=== PATIENT | male | born 1960 | race Caucasian/White ===

== ENCOUNTER → 2019-11-25 07:09 | Outpatient (CLI) | payer OTHER, SELFPAY ==
--- NOTE | ~2019-11-25 | MR_ITS ---
EXAMINATION: MR lumbar spine wo [facility] EXAM DATE: 11/25/2019 07:53 INDICATION: Degenerative disc disease. Back pain. TECHNIQUE: Multi-sequential, multiplanar MR images of the lumbar spine were obtained without contrast . Sagittal T1, T2, T2 fat saturation images. Axial T2 weighted images. There is no prior study for comparison. FINDINGS: There is mild to moderate upper lumbar dextroscoliosis. Paraspinal soft tissue is unremarka ble. Mild diffuse loss of vertebral body heights. Moderate to severe disc disease L1-2, L2-3 and L4-5 , mild to moderate at L3-4 and L5-S1. Mild to moderate lower thoracic disc disease. There is 3 mm ret rolisthesis L1 on L2, L2 on L3 and L4 on L5. The conus medullaris terminates at the L1/2 level and simon s normal signal intensity and morphology. Multilevel endplate degenerative signal change. Level by level evaluation: T12-L1: There is a mild diffuse disc bulge. Facet arthropathy: Mild. Neural foraminal stenosis: No stenosis. Central canal stenosis: No stenosis. L1-L2: There is a large diffuse disc bulge. Facet arthropathy: Moderate. Neural foraminal stenosis: Mild to moderate bilateral. Central canal stenosis: Mild to moderate. L2-L3: There is a large diffuse disc bulge. Facet arthropathy: Moderate. Neural foraminal stenosis: Moderate to severe left, mild right. Central canal stenosis: Mild to moderate. L3-L4: There is a moderate to large diffuse disc bulge. Facet arthropathy: Moderate. Neural foraminal stenosis: Mild to moderate bilateral. Central canal stenosis: Mild to moderate. L4-L5: There is a large diffuse disc bulge. Facet arthropathy: Moderate to severe right, moderate left. Neural foraminal stenosis: Moderate to severe right, moderate left. Central canal stenosis: Mild to moderate. L5-S1: There is a mild diffuse disc bulge. Facet arthropathy: Moderate right, mild left. Neural foraminal stenosis: Moderate right, mild to moderate left. Central canal stenosis: Mild. IMPRESSION: 1. Advanced multilevel disc disease. 2. Left L2-3 and right L4-5 neural foramen are most narrowed on exam. Reviewed, dictated and finalized at location A.
== END ==
PROVIDERS: PCP Family Medicine; Visit Provider Family Medicine
DX: M48.50XA Collapsed vertebra, not elsewhere classified, site unspecified, initial encounter for fracture (principal); M51.36 Other intervertebral disc degeneration, lumbar region; R93.7 Abnormal findings on diagnostic imaging of other parts of musculoskeletal system
CPT/HCPCS: 72148

== ENCOUNTER 2022-06-15 00:15 | Day surgery (SDC) | payer OTHER, SELFPAY ==
[2022-05-29 11:52] VITALS: BMI 24.5
[2022-06-15 06:18] VITALS: BP 146/92; PULSE 81; RESP 20; TEMP 36.3; O2SAT 97; BMI 24.3
[2022-06-15] MEDS: LACTATED RINGERS 1,000 ML 150 ML IV CONT (06:39)
--- NOTE | 2022-06-15 06:52 | P.HP_ITS ---
History of Present Illness History of Present Illness Consent: Risks, benefits, and alternatives have been discussed and questions answered. Patient agrees to proceed with procedure. Chief complaint: abnormal CT scan, Colitis Narrative: Baldomero Hudson is a 61 year old male who was recently evaluated for left- sided abdominal pain and diarrhea. CT scan that was done revealed thickening of the colon in the descending colon and sigmoid colon area. Also he had an elevated white blood count. . I reviewed the records from the emergency room visit. It suggest to me that he had something like diverticulitis. Stool cultures had been done that were all negative. He did see some blood his stools at that time. Review of Systems Review of Systems: All systems reviewed & are unremarkable except as noted in HPI and below PMFSH Social History Social History Smoking status: Never smoker Alcohol intake: former Alcohol use details: prior to knee surgery would drink on occasion Substance use: current Substance use type: other Other substance usage details: gummies at bedtime sometimes for insomnia Living arrangements: with family Spiritual care concerns: No Meds Home Medications and Allergies Home Medications Medication Instructions Recorded Confirmed Type amlodipine 10 mg tablet 10 mg PO DAILY 05/29/22 05/29/22 History aspirin 81 mg capsule 81 mg PO DAILY 05/29/22 05/29/22 History lorazepam 0.5 mg tablet 0.5 mg PO PRN PRN Anxiety 05/29/22 05/29/22 History losartan 100 mg tablet 100 mg PO DAILY 05/29/22 05/29/22 History omeprazole 20 mg capsule,delayed 20 mg PO DAILY 05/29/22 05/29/22 History release Allergies Allergy/AdvReac Type Severity Reaction Status Date / Time Penicillins AdvReac Headache Verified 05/29/22 12:06 Vital Signs Vital Signs - 24 hr 06/15/22 06:18 Temperature 36.3 C L Pulse Rate 81 Respiratory Rate 20 Blood Pressure 146/92 H Pulse Oximetry 97 Oxygen Delivery Room Air Exam Const: General: alert Orientation/consciousness: patient oriented x3 Resp: Auscultation: clear to auscultation bilaterally Cardio: Rhythm: regular rhythm GI: GI Palp: Yes Soft to palpation and No Tenderness to palpation present (GI) Neuro: General: patient oriented x3 Assessment and Plan Assessment and plan (1) Abnormal CT scan, gastrointestinal tract: Code(s): R93.3 - Abnormal findings on diagnostic imaging of other parts of digestive tract Status: Acute Assessment and Plan: Colonoscopy with possible biopsy or polypectomy or cautery or injection of substances.
--- NOTE | 2022-06-15 07:18 | WPDANESEPPF ---
Anes - Initial Pre Proc Eval Procedure: Operation Date: 06/15/22 07:30 Proposed Procedures p Colonoscopy - Conor Munson MD Date/Time: 06/15/22 07:18 Surgeon: Conor Munson MD Pre Op Diagnosis: abnormal CT scan, Colitis Patient Data Age: 61 Gender: M Height: 1.73 m Weight: 72.5 kg Last Vital Signs Temp 97.3 F L 06/15/22 06:18 Pulse 81 06/15/22 06:18 Resp 20 06/15/22 06:18 BP 146/92 H 06/15/22 06:18 Pulse Ox 97 06/15/22 06:18 O2 Del Method Room Air 06/15/22 06:18 Allergies Allergy/AdvReac Type Severity Reaction Status Date / Time Penicillins AdvReac Headache Verified 05/29/22 12:06 Home Medications Medication Instructions Recorded Confirmed Type amlodipine 10 mg tablet 10 mg PO DAILY 05/29/22 05/29/22 History aspirin 81 mg capsule 81 mg PO DAILY 05/29/22 05/29/22 History lorazepam 0.5 mg tablet 0.5 mg PO PRN PRN Anxiety 05/29/22 05/29/22 History losartan 100 mg tablet 100 mg PO DAILY 05/29/22 05/29/22 History omeprazole 20 mg capsule,delayed 20 mg PO DAILY 05/29/22 05/29/22 History release Patient hx anesthesia problems: none Family hx anesthesia problems: none Results Review: All pre-operative results and documents have been reviewed as part of the pre-operative evaluation. [facility] Social History Social History Smoking status: Never smoker Alcohol intake: former Alcohol use details: prior to knee surgery would drink on occasion Substance use: current Substance use type: other Other substance usage details: gummies at bedtime sometimes for insomnia Living arrangements: with family Spiritual care concerns: No Anes - Eval Final PreProcedure Day of Procedure 06/15/22 07:18 Patient weight: normal Heart: regular rate and rhythm Lungs: clear to auscultation Airway: Mallampati scale class II Neurological: alert and oriented Last oral intake: >/= 8 hours ASA classification: II Emergent: no Anesthetic plan: proceed Anesthesia type and monitoring: general GIVS and standard monitoring Results Review: All pre-operative results and documents have been reviewed as part of the pre-operative evaluation. Informed Consent: The patient's anesthetic plan and its attendant risks and benefits were discussed with the patient/family/POA. Questions were solicited and answers provided to the satisfaction of the patient/family/POA.
--- NOTE | 2022-06-15 07:40 | PM.HPGS ---
History of Present Illness History of Present Illness Consent: Risks, benefits, and alternatives have been discussed and questions answered. Patient agrees to proceed with procedure. Chief complaint: abnormal CT scan, Colitis Narrative: Baldomero Hudson is a 61 year old male [facility] Social History Social History Smoking status: Never smoker Alcohol intake: former Alcohol use details: prior to knee surgery would drink on occasion Substance use: current Substance use type: other Other substance usage details: gummies at bedtime sometimes for insomnia Living arrangements: with family Spiritual care concerns: No Meds Home Medications and Allergies Home Medications Medication Instructions Recorded Confirmed Type amlodipine 10 mg tablet 10 mg PO DAILY 05/29/22 05/29/22 History aspirin 81 mg capsule 81 mg PO DAILY 05/29/22 05/29/22 History lorazepam 0.5 mg tablet 0.5 mg PO PRN PRN Anxiety 05/29/22 05/29/22 History losartan 100 mg tablet 100 mg PO DAILY 05/29/22 05/29/22 History omeprazole 20 mg capsule,delayed 20 mg PO DAILY 05/29/22 05/29/22 History release Allergies Allergy/AdvReac Type Severity Reaction Status Date / Time Penicillins AdvReac Headache Verified 05/29/22 12:06 Vital Signs Vital Signs - 24 hr 06/15/22 06:18 Temperature 36.3 C L Pulse Rate 81 Respiratory Rate 20 Blood Pressure 146/92 H Pulse Oximetry 97 Oxygen Delivery Room Air Assessment and Plan Assessment and plan (1) Abnormal CT scan, gastrointestinal tract: Code(s): R93.3 - Abnormal findings on diagnostic imaging of other parts of digestive tract Status: Acute
[2022-06-15 07:45] VITALS: BP 77/45; PULSE 63; RESP 20; O2SAT 98
[2022-06-15 07:55] VITALS: BP 82/51; PULSE 60; RESP 20; O2SAT 99
[2022-06-15 08:02] VITALS: BP 115/86; PULSE 62; RESP 20; O2SAT 100
== END 2022-06-15 08:17 | disposition home or self-care (01) ==
PROVIDERS: PCP Family Medicine; Visit Provider Internal Medicine Gastroenterology
PROC: 0DJD8ZZ Inspection of Lower Intestinal Tract, Via Natural or Artificial Opening Endoscopic (ICD-10-PCS; CPT 45378; principal; 2022-06-15 07:30)
DX: K64.8 Other hemorrhoids (principal); K57.30 Diverticulosis of large intestine without perforation or abscess without bleeding; Z79.82 Long term (current) use of aspirin
CPT/HCPCS: 45378; J2704; J3370; J7120

== ENCOUNTER 2023-07-31 07:26 | Emergency (ER) | payer OTHER, SELFPAY ==
--- NOTE | ~2023-07-31 | CT_ITS ---
EXAMINATION: CT abdomen pelvis wo con DATE: 07/31/2023 08:33 INDICATION: Left flank pain and hematuria. TECHNIQUE: Computed tomography (CT) of the abdomen and pelvis was performed without intravenous contr ast. The dose-length product was 221.01 mGy-cm. Automated exposure control and iterative reconstructi on technique were employed. COMPARISON: None. FINDINGS: Lung bases unremarkable. Heart size normal. No significant pleural or pericardial effusion. Colonic diverticulosis without evidence for diverticulitis. Fatty infiltration of the liver. Gallbla dder is present. The spleen, pancreas, adrenal glands are unremarkable. There are small nonobstructin g left renal stones measuring 3 mm or less. No ureteral stones or hydronephrosis. No free air or free fluid. Severe lumbar spondylosis with grade 1 spondylolisthesis at L5-S1. No significant vascular ab normality. No lymphadenopathy. IMPRESSION: 1. Nonobstructing left nephrolithiasis. Reviewed, dictated and finalized at location B. ENT PRESSER
[2023-07-31 07:35] VITALS: BP 147/94; PULSE 84; RESP 16; TEMP 36.6; O2SAT 100
[2023-07-31 07:46] VITALS: BP 142/92; PULSE 80; RESP 16; O2SAT 100
[2023-07-31 08:01] VITALS: BP 139/96; PULSE 76; RESP 16; O2SAT 100
[2023-07-31 08:02] LABS: Basophils Percent Auto 0.3 % (0.2-1.2); Eosinophils Percent Auto 0.3 % (0-4.4); Hemoglobin 14.6 g/dL (14.0-18.0); Immature Granulocyte Absolute 0.02 K/mm3 (0.00-0.031); Immature Granulocyte Percent A 0.2 % (0-0.5); Lymphocytes Absolute Auto 0.77 K/mm3 (0.9-3.2); Lymphocytes Percent Auto 8.3 % (18.3-44.2); Mean Corpuscular HGB Conc 32.4 g/dl (32-36); Mean Corpuscular Hemoglobin 28.1 pg (26-34); Mean Corpuscular Volume 86.5 fl (80-100); Mean Platelet Volume 9.9 fl (7.4-10.4); Monocytes Absolute Auto 0.5 K/mm3 (0.1-0.6); Neutrophils Percent Auto 85.9 % (45.5-73.1); Platelet Count Result 300 k/mm3 (150-375); Red Cell Distribution Width 13.7 % (11.5-14.5); White Blood Count 9.3 K/mm3 (4.5-10.0)
--- NOTE | 2023-07-31 08:04 | ED.ABDPAIN ---
HPI - Abdominal Pain General Chief Complaint: Abdominal Pain Stated Complaint: Left side pain Time Seen by Provider: 07/31/23 07:36 History of Present Illness HPI narrative: 62-year-old male presenting to the ED for evaluation of hematuria and left flank pain. Patient was having some intermittent flank pain last night did have some hematuria this morning. Patient has no diagnosed history of kidney stone states that he has had intermittent issues with flank pain and hematuria last few months. Related Data Home Medications Medication Instructions Recorded Confirmed amlodipine 10 mg tablet 10 mg PO DAILY 05/29/22 05/29/22 aspirin 81 mg capsule 81 mg PO DAILY 05/29/22 05/29/22 lorazepam 0.5 mg tablet 0.5 mg PO PRN PRN Anxiety 05/29/22 05/29/22 losartan 100 mg tablet 100 mg PO DAILY 05/29/22 05/29/22 omeprazole 20 mg capsule,delayed 20 mg PO DAILY 05/29/22 05/29/22 release Allergies Allergy/AdvReac Type Severity Reaction Status Date / Time Penicillins AdvReac Headache Verified 05/29/22 12:06 Review of Systems Review of Systems: All systems reviewed & are unremarkable except as noted in HPI and below PMFSH Social History Social History Smoking status: Never smoker Alcohol intake: former Alcohol use details: prior to knee surgery would drink on occasion Substance use: current Substance use type: other Other substance usage details: gummies at bedtime sometimes for insomnia Living arrangements: with family Spiritual care concerns: No Exam Narrative: APPEARANCE: Well appearing, no pain, no distress, well-nourished. HEAD: normocephalic, atraumatic. EYES: PERRLA/EOMI, conjunctivae clear. NOSE: Normal no drainage EARS:TMS clear with good light reflex. THROAT: Pharynx clear, no exudate. NECK: Supple. No adenopathy, no masses. RESPIRATORY: Airway patent, respirations nonlabored. Clear to auscultation bilaterally, no rales, rhonchi, wheezing. CARDIOVASCULAR: Regular rate and rhythm without murmurs rubs or gallops. ABDOMINAL: Soft, nontender, nondistended, normal bowel sounds MUSCULOSKELETAL: Moves all extremities. Strength/ROM intact, No edema, No calf tenderness. NEURO: Alert. Cranial nerves II through XII intact. Grossly intact SKIN: Warm, dry. Normal Color Course Course Emergency Course: 62-year-old male presents emergency department for evaluation of left flank pain. Patient was afebrile with leukocytosis and a stable hemoglobin of 14.6. No significant abnormalities the patient's CMP. UA does show evidence of blood and having blood cells. CT scan did show evidence of nonobstructing kidney stones in the left kidney. Suspect this as the etiology for the patient's hematuria. Patient is being started antibiotics for possibility of underlying urinary tract infection. Patient was encouraged to have close follow-up with Urology. All questions and concerns were addressed and patient and family were comfortable with the plan for discharge and close follow-up. Vital Signs Vital signs: Vital Signs Temperature 97.9 F 07/31/23 07:35 Pulse Rate 84 07/31/23 07:35 Respiratory Rate 16 07/31/23 07:35 Blood Pressure 147/94 H 07/31/23 07:35 Pulse Oximetry 100 07/31/23 07:35 Temperature 97.9 F 07/31/23 07:35 Pulse Rate 70 07/31/23 10:40 Respiratory Rate 16 07/31/23 10:40 Blood Pressure 120/80 07/31/23 10:40 Pulse Oximetry 98 07/31/23 10:40 MDM - Abdominal Pain Differential Diagnosis Differential diagnosis: Likely abdominal pain, calculus of kidney, constipation, diverticulitis, endometriosis, gastroenteritis, pancreatitis and small bowel obstruction Lab Data Attestation: I reviewed the patient's lab results. 07/31/23 07:55 07/31/23 07:55 Labs: Lab Results 07/31/23 07/31/23 Range/Units 07:55 08:22 WBC 9.3 (4.5-10.0) K/mm3 RBC 5.20 (4.6-6.20) M/mm3 Hgb 14.6
[2023-07-31 08:12] LABS: Alanine Aminotransferase 23 U/L (6-50); Albumin Level 4.1 g/dL (3.5-5.1); Alkaline Phosphatase 61 U/L (38-126); Anion Gap 8 mmol/L (8-16); Aspartate Amino Transferase 28 U/L (17-59); Bilirubin,Total 0.6 mg/dL (0.2-1.3); Blood Urea Nitrogen 38 mg/dL (9-20); Calcium 8.9 mg/dL (8.4-10.2); Carbon Dioxide 26 mmol/L (22-30); Chloride 103 mmol/L (98-107); Estimated Glomerular Filt Rate > 60; Glucose 121 mg/dL (65-110); Potassium 3.7 mmol/L (3.4-5.0); Sodium 137 mmol/L (137-145)
[2023-07-31 08:14] LABS: Partial Thromboplastin Time 30.7 SECONDS (22.3-36.8)
[2023-07-31 09:00] VITALS: BP 124/82; PULSE 72; RESP 16; O2SAT 97
[2023-07-31 09:06] LABS: Appearance Urine Turbid (Clear); Bacteria Urine None Seen /hpf; Bilirubin Urine Negative (Negative); Blood Urine 3+ (Negative); Color Urine Yellow (Yellow); Glucose Urine UA Negative (Negative); Ketones Urine Trace mg/dL (Negative); Leukocyte Esterase Ur Trace LEU/UL (Negative); Nitrate Urine Negative (Negative); Non Pathogenic Casts 0-2; Protein Urine 1+ mg/dL (Negative); RBC Urine >100 /hpf (0-2); Specific Grav Ur 1.028 (1.001-1.035); Squamous Epithelial Cell Urine Many /hpf (Few); WBC Urine 21-50 /hpf
[2023-07-31 09:19] LABS: Add Urine Microscopic? YES
[2023-07-31] MEDS: ONDANSETRON INJ 4 MG/2 ML VIAL (09:47)
[2023-07-31 10:40] VITALS: BP 120/80; PULSE 70; RESP 16; O2SAT 98
== END 2023-07-31 10:40 | disposition home or self-care (01) ==
PROVIDERS: Emergency Provider Emergency Medicine; PCP Family Medicine
DX: N39.0 Urinary tract infection, site not specified (principal); R31.9 Hematuria, unspecified; N20.0 Calculus of kidney; Z79.82 Long term (current) use of aspirin
CPT/HCPCS: 36415; 74176; 80053; 81001; 85025; 85610; 85730; 87086; 96365; 96375; 99284; J0696; J2405

== ENCOUNTER 2023-09-06 13:24 | Outpatient (CLI) | payer OTHER, SELFPAY ==
--- NOTE | ~2023-09-06 | CT_ITS ---
EXAMINATION: CT abdomen pelvis wo/w con DATE: 09/06/2023 14:20 INDICATION: Gross hematuria. TECHNIQUE: Computed tomography (CT) of the abdomen and pelvis was performed without and with intraven ous contrast using a total of 130 mL Omnipaque-350 intravenous contrast with a double-bolus technique for simultaneous opacification of the renal parenchyma and renal collecting system. Automated exposu re control and iterative reconstruction technique were employed. The dose-length product was 991.02 m Gy-cm. COMPARISON: CT abdomen and pelvis 07/31/2023 FINDINGS: The visualized portions of the lung bases demonstrate mild atelectasis. No pleural effusion. The hear t size is normal. No pericardial effusion. The liver, gallbladder, spleen, pancreas, and right adrena l gland are normal. There is a 3 mm mass in left adrenal gland measuring fat attenuation, consistent with a myelolipoma. There is a 1 mm stone in right kidney. There are 4 stones in left kidney measurin g up to 3 mm. There is a 17 mm enhancing mass in the bladder on the left. There is cortical thinning of the kidneys. There are cysts in the kidneys measuring up to 7 mm on the right. The ureters are wel l opacified and are normal. The prostate is mildly enlarged. There is diverticulosis of the colon wit hout evidence of diverticulitis. The appendix is normal. There are no dilated loops of bowel. There i s calcified atherosclerosis of the aorta and many of the other arteries. There are no pathologically enlarged lymph nodes. There is no free intraperitoneal fluid. There is a left inguinal hernia contain ing fat. There are bilateral hydroceles. There is severe thoracic and lumbar spondylosis. There are c hronic bilateral L5 pars defects. IMPRESSION: 1. 17 mm enhancing bladder mass, consistent with urothelial carcinoma. 2. Bilateral nonobstructing kidney stones. 3. Bilateral hydroceles. Reviewed, dictated and finalized at location A. DRAWER IN HELPER
[2023-09-06 14:01] LABS: Estimated Glomerular Filt Rate 56
== END 2023-09-06 13:25 | disposition home or self-care (01) ==
PROVIDERS: PCP Family Medicine; Visit Provider Physician Assistant
DX: R31.0 Gross hematuria (principal); N20.0 Calculus of kidney; N43.3 Hydrocele, unspecified
CPT/HCPCS: 74178; Q9967

== ENCOUNTER 2023-10-18 10:18 | Outpatient (CLI) | payer OTHER, SELFPAY ==
--- NOTE | 2023-10-18 10:29 | ECG_ITS ---
Measurements Intervals [place] Rate: 71 P: 48 MA: 209 QRS: -12 QRSD: 92 T: 53 QT: 389 QTc: 423 Interpretive Statements SINUS RHYTHM WITHIN NORMAL LIMITS NO PREVIOUS ECG AVAILABLE FOR COMPARISON Electronically Signed On 10-18-2023 15:36:49 [facility]ICE COORDINATOR [facility] by Prince Palomino M.D.
[2023-10-18 11:42] LABS: Hematocrit 42.3 % (42.0-52.0); Hemoglobin 13.6 g/dL (14.0-18.0)
== END 2023-10-18 10:19 | disposition home or self-care (01) ==
LOC: ANHSURGERY 10:24
PROVIDERS: Anesthesiology; PCP Family Medicine; Visit Provider Urology
DX: D64.9 Anemia, unspecified (principal); I10 Essential (primary) hypertension; Z01.818 Encounter for other preprocedural examination
CPT/HCPCS: 36415; 85014; 85018; 93005

== ENCOUNTER 2023-10-24 00:41 | Day surgery (SDC) | payer OTHER, SELFPAY ==
[2023-10-16 14:34] VITALS: BMI 24.5
--- NOTE | 2023-10-16 14:48 | PC.NURSE ---
Report to the Outpatient Waiting Room, entrance under the green pavilion located off [facility], at time __0730 _ on date _10/24/23_. Planned Procedure Time: __0930_. Time changes happen often and if your time is changed the preop area will call you the afternoon before. - You and your visitor will be asked to self-screen and do not enter if you have any COVID symptoms. - A mask is optional within the hospital at this time. Patients may have clear liquids (water, carbonated beverages, clear teas, apple juice) until 3 hours prior to surgery with a maximum of 20 ounces. - No food from midnight until time of surgery - Infants may have breast milk until 4 hours before surgery, formula 6 hours prior to surgery. - Children will be allowed to drink immediately following surgery. If applicable, please bring a bottle or sippy cup to assist with drinking. Juice, water, soda, and popsicles are readily available. For infants on formula, please bring formula the day of surgery. Pacifiers are allowed. Take the following medications with a SIP of water the morning of surgery: NONE, LORAZEPAM IF NEEDED DO NOT STOP ANY OF YOUR OTHER PRESCRIPTION MEDICATIONS PRIOR TO SURGERY ?EXCEPT THE FOLLOWING Medications to discontinue per physician SUPPLIMENTS __VITAMIN Date to take last dose_10/21/23 Please no make-up, nail vincentian, hairspray, perfume, deodorant, or body powder the day of surgery. No jewelry (including any body piercings) or valuables the day of surgery, leave them at home. Please take a shower or bath the night before, or the morning of, surgery with an antibacterial soap. Wear comfortable, loose fitting clothing. Children are encouraged to wear pajamas. - Jewelry must be removed prior to entering the operating room. Rings and piercings that are not removed may be cut off. - The hospital will not accept responsibility for valuables. - Please leave all valuables, including medications, at home the day of surgery. If you are going home after surgery, a licensed courtesy car driver must drive you home. - NO public transportation without another adult if you receive anesthesia. - We recommend that an adult stay with you for 24 hours following discharge. - We also recommend that you do not drive, make important decision, drink alcoholic beverages, or take any drugs that were not prescribed by your health care provider for at least 24 hours after your discharge time. For Pediatric surgeries, we recommend two adults accompany the child home. Follow any additional instructions given to you from your surgeon. If you or anyone in your household have experienced Covid symptoms in the past week, please notify your surgeon or the nurse liaison at the phone number below for possible testing. Telephone instructions given to _PATIENT__and asked if any additional questions and then verbalized understanding. Patient advised to call surgeon office or pre surgery nurse liaison [phone] if any additional questions.
--- NOTE | 2023-10-23 09:45 | WPDANESEPPF ---
Anes - Initial Pre Proc Eval Procedure: Operation Date: 10/24/23 09:30 Proposed Procedures p Trans Urethral Resection Bladder Tumor - Duncan Bran MD s Cystoscopy Bilateral Retrograde Pyelography with Gemcitabine Instillation - Duncan Bran MD Date/Time: 10/23/23 09:45 Surgeon: Duncan Bran MD Pre Op Diagnosis: gross hematuria Patient Data Age: 62 Gender: M Height: 1.73 m Weight: 73 kg Allergies Allergy/AdvReac Type Severity Reaction Status Date / Time Penicillins AdvReac Mild Headache Verified 10/24/23 07:43 Home Medications Medication Instructions Recorded Confirmed Type amlodipine 10 mg tablet 10 mg PO HS 05/29/22 10/24/23 History aspirin 81 mg capsule 81 mg PO DAILY 05/29/22 10/24/23 History lorazepam 0.5 mg tablet 0.5 mg PO PRN PRN Anxiety 05/29/22 10/24/23 History losartan 100 mg tablet 100 mg PO HS 05/29/22 10/24/23 History omeprazole 20 mg capsule,delayed 20 mg PO DAILY 05/29/22 10/24/23 History release ondansetron 4 mg disintegrating 4 mg PO Q8H PRN nausea and 07/31/23 10/16/23 Rx tablet vomiting #20 tabs ferrous sulfate 325 mg (65 mg 325 mg PO DAILY 10/16/23 10/24/23 History iron) capsule,extended release multivitamin 1 tablet PO DAILY 10/16/23 10/24/23 History vitamin B complex 1 cap PO DAILY 10/16/23 10/24/23 History Patient hx anesthesia problems: none Family hx anesthesia problems: none Results Review: All pre-operative results and documents have been reviewed as part of the pre-operative evaluation. [facility] Past Medical History Medical History (Updated 10/23/23 @ 09:45 by Bert Mansfield DO) Anxiety GERD (gastroesophageal reflux disease) Hypertension KRISTAL (obstructive sleep apnea) Social History Social History Smoking packs per day: 0.5 Smoking cigarettes per day: 10.0 Years smoked: 20 Smoking pack-years: 10.00 Smoking status: Former smoker Tobacco type: cigarettes Additional smoking assessment comments: STOPPED SMOKING 1999 Alcohol intake: current Drinks per week: 1 Alcohol use details: prior to knee surgery would drink on occasion Substance use: current Substance use type: other Other substance usage details: THC FOR SLEEP, EVERY EVENING Living arrangements: with family Spiritual care concerns: No Anes - Eval Final PreProcedure Day of Procedure 10/23/23 09:45 Patient weight: normal Heart: regular rate and rhythm Lungs: clear to auscultation Airway: Mallampati scale class II Neurological: alert and oriented Last oral intake: >/= 8 hours ASA classification: III Emergent: no Anesthetic plan: proceed Anesthesia type and monitoring: general LMA and standard monitoring Results Review: All pre-operative results and documents have been reviewed as part of the pre-operative evaluation. Informed Consent: The patient's anesthetic plan and its attendant risks and benefits were discussed with the patient/family/POA. Questions were solicited and answers provided to the satisfaction of the patient/family/POA.
[2023-10-24] VITALS (9 sets, daily range): BP systolic 83–157; BP diastolic 59–104; PULSE 69–83; RESP 12–20; TEMP 36.7; O2SAT 94–100
--- NOTE | ~2023-10-24 | XR_ITS ---
EXAMINATION: XR retrograde pyelogram BI DATE: 10/24/2023 08:59 INDICATION: Gross hematuria. Bladder urothelial carcinoma. TECHNIQUE: 73 intraoperative fluoroscopic views of the abdomen and pelvis were obtained. I was not pr esent. Fluoroscopy exposure time was 15 seconds. COMPARISON: CT abdomen and pelvis 09/06/2023 FINDINGS: The bilateral retrograde pyelograms are normal. IMPRESSION: 1. Normal bilateral retrograde pyelograms. Reviewed, dictated and finalized at location A. DEVELOPER
--- NOTE | 2023-10-24 06:13 | WPDHPUPDATE1 ---
History and Physical Update Update Date/Time: 10/24/23 06:13 History and Physical has been reviewed, including an updated exam of the patient. There are NO changes in the patient's condition. Risks, benefits, and alternatives have been discussed and questions answered. Patient agrees to proceed with procedure.
[2023-10-24] MEDS: LACTATED RINGERS 1,000 ML 30 ML IV CONT ×2 (07:50→09:20)
[2023-10-24] MEDS: ceFAZolin 2 GM/D5W 50 ML 2 GM/50 ML BAG IVPB (08:36)
--- NOTE | 2023-10-24 09:17 | P.OP_ITS ---
Procedure Note - Detailed Date of Procedure 10/24/23 Pre-op Diagnosis Gross hematuria, urothelial carcinoma of bladder Post-op Diagnosis Same Procedure Performed Cystoscopy, bilateral retrograde pyelography, TURBT ( medium, 3-3.5 cm), bl adder biopsy Surgeon Duncan Bran MD Anesthesia General Description of Procedure patient is brought to the operative suite was prepped draped in routine sterile fashion while in dorsal lithotomy position after the uneventful induction of a general anesthetic. I 1st placed a 19 F rigid cystoscope in his bladder. There was no urethral stricture with moderate lateral lobe hyperplasia no appreciable median lobe of the prostate. Is a single orthotopic ureteral orifice bilaterally. A 8 F bulb tip catheter was used to obtain bilateral retrograde pyelograms which appeared normal, without obstruction and filling defect or other identifiable pathology in the upper urinary tracts. He does have a pedunculated 3-3.5 cm papillary urothelial neoplasm in the left posterior lateral bladder wall. This was resected in its entirety with an attempt made to include detrusor muscle for pathological evaluation of invasion. He has a tiny papillary lesion in the right posterior lateral bladder wall which was likewise resected. The base and periphery were cauterized. Lastly, he has a small area of hyperemia in the left lateral wall which I biopsied and sent separately. The base and periphery of all the sites were cauterized with both the loop electrode and a rollerball electrode in a fashion to avoid injury to the ureteral orifices. All chips were evacuated. The resectoscope was removed and the 18 F urethral catheter was placed to drainage. Drains Yes Packing No Pathology Yes Complications No immediate complications
--- NOTE | 2023-10-24 09:21 | W.PM.PROC2 ---
Procedure Note - Detailed Date of Procedure 10/24/23 Pre-op Diagnosis Urothelial carcinoma bladder Post-op Diagnosis Same Procedure Performed Gemcitabine installation into bladder Surgeon Duncan Bran MD Anesthesia None Description of Procedure With the patient in the supine position, a 16F Pacheco catheter is placed using sterile technique. Using a protective facemask, gown and double layer of gloves Gemcitabine 2gm in 100cc saline is administered through the catheter/into the bladder. The catheter is then plugged. Patient was instructed to lie supine x20min, then to roll both the left and right x20 min. each. Total dwell time will be 60 min., after which the bladder will be drained and catheter removed. Packing No Pathology None sent Complications No immediate complications Condition Stable
[2023-10-24] MEDS: SODIUM CHLORIDE 0.9% IV 23.7 ML, GEMCITABINE HCL 1,000 MG BLADDER ×2 (09:27→09:28)
--- NOTE | 2023-10-24 09:48 | SUR.PHASEI ---
After 20 minues on back turrned onto right side due to bladder installation.
--- NOTE | 2023-10-24 10:11 | SUR.PHASEI ---
Turned to left side.
[2023-10-24] MEDS: oxyCODONE HCL (*CRX) 5 MG TAB IR PO (11:14)
== END 2023-10-24 11:48 | disposition home or self-care (01) ==
PROVIDERS: PCP Family Medicine; Visit Provider Urology
PROC: 0TBB8ZZ Excision of Bladder, Via Natural or Artificial Opening Endoscopic (ICD-10-PCS; CPT 52235; principal; 2023-10-24 09:30)
PROC: 3E1K78Z Irrigation of Genitourinary Tract using Irrigating Substance, Via Natural or Artificial Opening (ICD-10-PCS; CPT 51700; 2023-10-24 09:30)
DX: C67.2 Malignant neoplasm of lateral wall of bladder (principal); N30.20 Other chronic cystitis without hematuria; I10 Essential (primary) hypertension; K21.9 Gastro-esophageal reflux disease without esophagitis; G47.33 Obstructive sleep apnea (adult) (pediatric); F41.9 Anxiety disorder, unspecified; Z79.82 Long term (current) use of aspirin; Z87.891 Personal history of nicotine dependence; F12.90 Cannabis use, unspecified, uncomplicated
CPT/HCPCS: 52235; 52204; 36415; 51720; 74420; 85014; 85018; 88305; 93005; A9270; C1758; J0690; J1596; J2250; J2371; J2405; J2704; J3010; J7120; J9201; Q9966

== ENCOUNTER 2025-04-22 02:12 | Day surgery (SDC) | payer OTHER, SELFPAY ==
[2025-04-14 10:15] VITALS: BMI 25.9
--- NOTE | 2025-04-14 10:16 | PC.NURSE ---
Addendum entered by Sravan Patel RN 04/14/25 10:37: Patient says he's holding Aspirin 3 days as was instructed for last surgery. Original Note: Report to the Outpatient Waiting Room, entrance under the green pavilion located off [facility], at time _0730_ on date _[id number]_. Planned Procedure Time: _0930_.? Time changes happen often and if your time is changed the preop area will call you the afternoon before. - You and your visitor will be asked to self-screen and do not enter if you have any COVID symptoms. Please call surgeon if you need to reschedule. - A mask is optional within the hospital at this time. Patients may have clear liquids (water, carbonated beverages, clear teas, apple juice) until 3 hours prior to surgery with a maximum of 20 ounces. - No food from midnight until time of surgery and no smoking, or chewing tobacco (or any form of nicotine). No chewing gum, candy or mints. Take only the following medications with a SIP of water on the morning of surgery: ____None___ DO NOT STOP ANY OF YOUR OTHER PRESCRIPTION MEDICATIONS PRIOR TO SURGERY EXCEPT THE FOLLOWING Hold all vitamins and supplements for 3 days per anesthesiologist. Medications to discontinue per physician Date to take last aqbc__[id number]____ Please no make-up, nail mosotho, hairspray, perfume, deodorant, or body powder the day of surgery.? No jewelry (including any body piercings) or valuables the day of surgery, leave them at home.? Please take a shower or bath the night before, or the morning of, surgery with an antibacterial soap.? Wear comfortable, loose fitting clothing.? - Jewelry must be removed prior to entering the operating room.? Rings and piercings that are not removed may be cut off. - The hospital will not accept responsibility for valuables.? - Please leave all valuables, including medications, at home the day of surgery. If you are going home after surgery, a licensed tier truck driver must drive you home.? - NO public transportation without another adult if you receive anesthesia. - We recommend that an adult stay with you for 24 hours following discharge. - We also recommend that you do not drive, make important decision, drink alcoholic beverages, or take any drugs that were not prescribed by your health care provider for at least 24 hours after your discharge time. Follow any additional instructions given to you from your surgeon. Telephone instructions given to __Luke__and asked if any additional questions and then verbalized understanding. Patient advised to call surgeon office or pre surgery nurse liaison [phone] if any additional questions.
[2025-04-22] VITALS (11 sets, daily range): BP systolic 118–171; BP diastolic 69–102; PULSE 68–90; RESP 12–18; TEMP 36.1–36.6; O2SAT 97–100
--- NOTE | ~2025-04-22 | XR_ITS ---
INTRAOPERATIVE FLUOROSCOPY: CLINICAL HISTORY: 64 years old Male; URETHRAL RESECTION BLADDER PROCEDURE COMMENTS: Limited intraoperative fluoroscopy of the pelvis was performed. CUMULATIVE DOSE: 4 mGy FLUOROSCOPY TIME: 16 seconds FINDINGS/IMPRESSION: Please refer to operative note for further details. Reviewed, dictated and finalized at location A.
--- NOTE | 2025-04-22 06:22 | WPDHPUPDATE1 ---
History and Physical Update Update Date/Time: 04/22/25 06:22 History and Physical has been reviewed, including an updated exam of the patient. There are NO changes in the patient's condition. Risks, benefits, and alternatives have been discussed and questions answered. Patient agrees to proceed with procedure.
--- NOTE | 2025-04-22 07:28 | P.PNAN_ITS ---
Anes - Initial Pre Proc Eval Procedure: Operation Date: 04/22/25 09:15 Proposed Procedures p Trans Urethral Resection Bladder Tumor with Gemcitabine Instillation - Duncan Bran MD Date/Time: 04/22/25 07:28 Surgeon: Duncan Bran MD Pre Op Diagnosis: Hx Bladder Ca Patient Data Age: 64 Gender: M Height: 1.73 m Weight: 77.3 kg Allergies Allergy/AdvReac Type Severity Reaction Status Date / Time Penicillins AdvReac Mild Headache Verified 04/14/25 09:57 Home Medications ?Medication ?Instructions ?Recorded ?Confirmed ?Type amlodipine 10 mg tablet 10 mg PO HS 05/29/22 04/14/25 History aspirin 81 mg capsule 81 mg PO DAILY 05/29/22 04/14/25 History lorazepam 0.5 mg tablet 0.5 mg PO PRN PRN Anxiety 05/29/22 04/14/25 History losartan 100 mg tablet 100 mg PO HS 05/29/22 04/14/25 History omeprazole 20 mg capsule,delayed 20 mg PO DAILY 05/29/22 04/14/25 History release multivitamin 1 tablet PO DAILY 10/16/23 04/14/25 History vitamin B complex 1 cap PO DAILY 10/16/23 04/14/25 History ferrous sulfate 325 mg (65 mg 650 mg PO DAILY 04/14/25 04/14/25 History iron) tablet (Feosol) Patient hx anesthesia problems: none Family hx anesthesia problems: none Results Review: All pre-operative results and documents have been reviewed as part of the pre- operative evaluation. ON LICENSE OF [facility] Past Medical History Medical History (Updated 10/24/23 @ 09:21 by Duncan Bran MD) Anxiety GERD (gastroesophageal reflux disease) KRISTAL (obstructive sleep apnea) Hypertension Social History Social History Smoking packs per day: 0.5 Smoking cigarettes per day: 10.0 Years smoked: 10 Smoking pack-years: 5.00 Smoking status: Former smoker Tobacco type: cigarettes Smoking end date: 04/14/00 Additional smoking assessment comments: STOPPED SMOKING 1999 Alcohol intake: current Drinks per week: 1 Alcohol use details: prior to knee surgery would drink on occasion Substance use: current Substance use type: marijuana Other substance usage details: THC gummies for sleep Living arrangements: with family Spiritual care concerns: No Anes - Eval Final PreProcedure Day of Procedure 04/22/25 07:28 Patient weight: overweight Heart: regular rate and rhythm Lungs: clear to auscultation Airway: Mallampati scale class II Neurological: alert and oriented Last oral intake: >/= 8 hours ASA classification: III Emergent: no Anesthetic plan: proceed Anesthesia type and monitoring: general LMA and standard monitoring Results Review: All pre-operative results and documents have been reviewed as part of the pre- operative evaluation. Informed Consent: The patient's anesthetic plan and its attendant risks and benefits were discussed with the patient/family/POA. Questions were solicited and answers provided to the satisfaction of the patient/family/POA.
[2025-04-22] MEDS: LACTATED RINGERS 1,000 ML 30 ML IV CONT (07:45)
[2025-04-22 07:52] LABS: Hematocrit 42.5 % (42.0-52.0); Hemoglobin 14.2 g/dL (14.0-18.0)
[2025-04-22] MEDS: ceFAZolin 2 GM in SODIUM CHLORIDE 0.9% IV 50 ML 100 ML IVPB (08:19)
[2025-04-22] MEDS: LIDOCAINE 2% GEL UROJET 10 ML PKG MUCOUS MEM (08:30)
--- NOTE | 2025-04-22 08:41 | S_PTH ---
PATIENT: Baldomero Hudson LOC: [facility] U#:[id number] AGE/SX: 64/M ROOM: RE04/22/[address]: Duncan Bran MD : 1960 BED: DIS: 04/22/2025 SPEC #: [id number] RECD: 04/22/25 10:31 STATUS: JANET REQ #: [id number] ELMER: 04/22/25 08:[address]: Duncan Bran DEPT: [facility] Surgical RECD BY: Luann Avila ENTERED: 04/22/25 10:31 SP TYPE: Surgical OTHR DR: Vaibhav Griffin, Tissues: A - Bladder Tumor B - Bladder TURBT Procedures: Hematoxylin and Eosin Stain Gross and Microscopic Level 4 Gross and Microscopic Level 5 P53 CK 20
--- NOTE | 2025-04-22 08:53 | W.PM.PROC2 ---
Procedure Note - Detailed Date of Procedure 04/22/25 Pre-op Diagnosis Bladder cancer overlapping sites Post-op Diagnosis Same Procedure Performed 1. TURBT (medium, 3 cm) 2. Bladder biopsy Surgeon Duncan Bran MD Anesthesia General Description of Procedure Patient is brought to the operative suite was prepped draped in routine sterile fashion while in dorsal lithotomy position after the uneventful induction of a general LMA anesthetic. Cystoscopy was undertaken with a 19 F rigid cystoscope. He has the 2 papillary lesions near the bladder neck as previously identified. These are resected in their entirety with a 24 F resectoscope and the bases cauterized with the loop and rollerball electrode. He also has a small 1 cm area in the posterior wall it is slightly hyperemic. This may not be of any significance but I did obtain a biopsy with the loop electrode to cauterize that base. Bladder was emptied and a 18 F catheter was placed to drainage for installation of gemcitabine. Drains Yes Packing No Pathology Yes
--- NOTE | 2025-04-22 08:58 | W.PM.PROC2 ---
Procedure Note - Detailed Date of Procedure 04/22/25 Pre-op Diagnosis Bladder cancer overlapping sites Post-op Diagnosis Same Procedure Performed Gemcitabine installation Surgeon Duncan Bran MD Anesthesia None Description of Procedure With the patient in the supine position, a 16F Pacheco catheter is placed using sterile technique. Using a protective facemask, gown and double layer of gloves Gemcitabine 2gm in 100cc saline is administered through the catheter/into the bladder. The catheter is then plugged. Patient was instructed to lie supine x20min, then to roll both the left and right x20 min. each. Total dwell time will be 60 min., after which the bladder will be drained and catheter removed.
[2025-04-22] MEDS: fentaNYL CITRATE INJ (*CRX) 100 MCG/2 ML VIAL 25 MCG IV PUSH ×4 (09:01→09:19)
[2025-04-22] MEDS: SODIUM CHLORIDE 0.9% IV 23.7 ML, GEMCITABINE HCL 1,000 MG BLADDER ×2 (09:04→09:05)
[2025-04-22] MEDS: SODIUM CHLORIDE 0.9% IV 50 ML BAG 150 ML IRRIGATION (10:10)
--- NOTE | 2025-04-22 10:26 | SUR.PHASEI ---
1005 - bladder instillation orders completed. pt mike well
[2025-04-22] MEDS: ONDANSETRON INJ 4 MG/2 ML VIAL IV PUSH (11:08)
== END 2025-04-22 11:35 | disposition home or self-care (01) ==
PROVIDERS: Anesthesiology; PCP Family Medicine; Visit Provider Urology
PROC: 0TBB8ZZ Excision of Bladder, Via Natural or Artificial Opening Endoscopic (ICD-10-PCS; CPT 52235; principal; 2025-04-22 09:15)
DX: C67.8 Malignant neoplasm of overlapping sites of bladder (principal); R31.0 Gross hematuria; I10 Essential (primary) hypertension; K21.9 Gastro-esophageal reflux disease without esophagitis; F41.9 Anxiety disorder, unspecified; G47.33 Obstructive sleep apnea (adult) (pediatric); F12.90 Cannabis use, unspecified, uncomplicated; Z79.82 Long term (current) use of aspirin; Z98.890 Other specified postprocedural states; Z87.891 Personal history of nicotine dependence; Z87.442 Personal history of urinary calculi; Z80.42 Family history of malignant neoplasm of prostate; Z80.1 Family history of malignant neoplasm of trachea, bronchus and lung
CPT/HCPCS: 52235; 52204; 36415; 51720; 85014; 85018; 88305; 88307; 88342; 99199; J0690; J2405; J3010; J7120; J9201

== ENCOUNTER 2025-05-20 00:59 | Day surgery (SDC) | payer OTHER, SELFPAY ==
--- NOTE | 2025-05-13 07:20 | PM.HPGS ---
History of Present Illness History of Present Illness Consent: Risks, benefits, and alternatives have been discussed and questions answered. Patient agrees to proceed with procedure. Chief complaint: bladder tumor Narrative: Baldomero Hudson is a 64 year old male had a recent bladder tumor resection that showed T1 high-grade urothelial carcinoma. He presents now for re-resection bladder tumor base. He is aware the risk including, but not limited to, need for additional therapy, bladder perforation, recurrent neoplasm. 10/2023: ?CT-abd/pelvis w/wo contrast: normal upper tracts ?TURBT Pathology: Ta, low-grade [Low Risk] ?Bladder bx.: Inflammation without CIS Plan: Surveillance cysto. q3-mo. x2 / q6-mo. x1-year / annual 01/2024: ?Cysto: neg. 06/2024: ?Cysto.: neg 09/2024: ?Cysto.: neg ?Cytology: - atypical ?- FISH: negative 04/2025: ?Pathology: T1, High-grade with CIS / no muscle identified Review of Systems Review of Systems: All systems reviewed & are unremarkable except as noted in HPI and below PMFSH Past Medical History Medical History (Updated 10/24/23 @ 09:21 by Duncan Bran MD) Anxiety GERD (gastroesophageal reflux disease) KRISTAL (obstructive sleep apnea) Hypertension Social History Social History Smoking packs per day: 0.5 Smoking cigarettes per day: 10.0 Years smoked: 10 Smoking pack-years: 5.00 Smoking status: Former smoker Tobacco type: cigarettes Smoking end date: 04/14/00 Additional smoking assessment comments: STOPPED SMOKING 1999 Alcohol intake: current Drinks per week: 1 Alcohol use details: prior to knee surgery would drink on occasion Substance use: current Substance use type: marijuana Other substance usage details: THC gummies for sleep Living arrangements: with family Spiritual care concerns: No Meds Home Medications and Allergies Home Medications ?Medication ?Instructions ?Recorded ?Confirmed ?Type amlodipine 10 mg tablet 10 mg PO HS 05/29/22 04/14/25 History aspirin 81 mg capsule 81 mg PO DAILY 05/29/22 04/22/25 History Held on 04/22/25. Instructions: Resume on 04/24/25. lorazepam 0.5 mg tablet 0.5 mg PO PRN PRN Anxiety 05/29/22 04/22/25 History losartan 100 mg tablet 100 mg PO HS 05/29/22 04/14/25 History omeprazole 20 mg capsule,delayed 20 mg PO DAILY 05/29/22 04/14/25 History release multivitamin 1 tablet PO DAILY 10/16/23 04/14/25 History vitamin B complex 1 cap PO DAILY 10/16/23 04/14/25 History ferrous sulfate 325 mg (65 mg 650 mg PO DAILY 04/14/25 04/14/25 History iron) tablet (Feosol) hydrocodone 5 mg-acetaminophen 325 1 - 2 tablet PO Q6H PRN pain #20 04/22/25 Rx mg tablet tabs Allergies Allergy/AdvReac Type Severity Reaction Status Date / Time Penicillins AdvReac Mild Headache Verified 04/22/25 08:00 Exam Const: General: no acute distress Resp: Effort & Inspection: normal respiratory effort GI: Inspection: non-distended GI Palp: No abdominal tenderness and No Guarding due to palpation present (GI) Auscultation: normal bowel sounds Assessment and Plan Assessment and plan (1) Malignant neoplasm of overlapping sites of bladder: Code(s): C67.8 - Malignant neoplasm of overlapping sites of bladder Status: Acute Assessment and Plan: Re-resection bladder tumor base
--- NOTE | 2025-05-13 14:36 | PC.NURSE ---
Report to the Outpatient Waiting Room, entrance under the green pavilion located off [facility], at time _1000_ on date _[id number]_. Planned Procedure Time: _1200_.? Time changes happen often and if your time is changed the preop area will call you the afternoon before. - You and your visitor will be asked to self-screen and do not enter if you have any COVID symptoms. Please call surgeon if you need to reschedule. - A mask is optional within the hospital at this time. Patients may have clear liquids (water, carbonated beverages, clear teas, apple juice) until 3 hours prior to surgery with a maximum of 20 ounces. - No food from midnight until time of surgery and no smoking, or chewing tobacco (or any form of nicotine). No chewing gum, candy or mints. Take only the following medications with a SIP of water on the morning of surgery: ___If needed Lorazepam or Hydrocodone___ DO NOT STOP ANY OF YOUR OTHER PRESCRIPTION MEDICATIONS PRIOR TO SURGERY EXCEPT THE FOLLOWING Hold all vitamins and supplements for 3 days per anesthesiologist. Medications to discontinue per physician Use Acetaminophen if needed, avoid Ibuprofen unless OK'd with Dr Bran. Date to take last dose Please no make-up, nail lao, hairspray, perfume, deodorant, or body powder the day of surgery.? No jewelry (including any body piercings) or valuables the day of surgery, leave them at home.? Please take a shower or bath the night before, or the morning of, surgery with an antibacterial soap.? Wear comfortable, loose fitting clothing.? - Jewelry must be removed prior to entering the operating room.? Rings and piercings that are not removed may be cut off. - The hospital will not accept responsibility for valuables.? - Please leave all valuables, including medications, at home the day of surgery. If you are going home after surgery, a licensed chassis driver must drive you home.? - NO public transportation without another adult if you receive anesthesia. - We recommend that an adult stay with you for 24 hours following discharge. - We also recommend that you do not drive, make important decision, drink alcoholic beverages, or take any drugs that were not prescribed by your health care provider for at least 24 hours after your discharge time. Follow any additional instructions given to you from your surgeon. Telephone instructions given to ___Luke__and asked if any additional questions and then verbalized understanding. Patient advised to call surgeon office or pre surgery nurse liaison [phone] if any additional questions.
[2025-05-13 14:48] VITALS: BMI 25.4
[2025-05-20] VITALS (9 sets, daily range): BP systolic 92–140; BP diastolic 60–92; PULSE 73–91; RESP 14–18; TEMP 36.1–36.8; O2SAT 93–98
--- OUTSIDE RECORDS SUMMARY | 2025-05-20 01:02 | XMS_ITS | Encounter Summary ---
Author Organization [facility] Address [facility] [place] [address] Care Team Providers Care Film Coater Name Role Phone Vaibhav Griffin MD Primary Care Provider [phone] Encounter Details Date Type Department Care Team (Late st Contact Info) Description 07/09/2022 BioStable Message Enc [facility] Medical Group Family & Internal Medicine [address] [address] Aubrey, [facility] Provider Due for routine follow up appt Social History Tobacco Use Types Packs/Day Years Used Date Smoking Tobacco: Former Cigarettes 1 11/05/1996 - 09/04/2001 Smokeless Tobacco: Never Comments:smoked 1 pack per w [place] [employer] [place] Alcohol Use Standard Drinks/Week Comments Not Currently 0 (1 standard drink = 0.6 oz pur e alcohol) PHQ-2 Answer Date Recorded PHQ-2 Score - If the patient scores above 3, please move on to questions 3-9 5 12/07/2021 Sex and Gender Information Value Date Recorded Sex Assigned at Male 10/16/2024 9:32 AM RESERVATIONS SPECIALIST Legal Sex Male 7:58 PM CDT Gender Identity Male 11/02/2021 3:03 PM RESERVATIONS SPECIALIST Sexual Orientation Straight 11/02/2021 3: 03 PM RESERVATIONS SPECIALIST documented as of this encounter Plan of Treatment Upcoming Encounters Date Type Department Care Team (Late st Contact Info) Description 10/18/2025 9:00 AM RESERVATIONS SPECIALIST Office Visit [facility] Medical Group Family & Internal Medicine [facility] [address] [place] [address] [place] [address] [place] [address] documented as of this encounter Visit Diagnoses Not on filedocumented in this encounter Additional Health Concerns Assessment Noted Time PHQ-9 Depression Total Score: 20 022 12:53 PM CDT documented as of this encounter Care Teams Film Coater Relationship Specialty [place] [address] [place] [address] PCP - General FAMILY PRACTICE 12/29/18 documented as of this encounter
--- OUTSIDE RECORDS SUMMARY | 2025-05-20 01:02 | XMS_ITS | Encounter Summary ---
Author Organization [facility] Address [facility] [place] [address] Care Team Providers Care Wire Roller Name Role Phone Vaibhav Griffin MD Primary Care Provider [phone] Encounter Details Date Type Department Care Team (Late st Contact Info) Description 10/24/2023 JDLab Message Enc [facility] Family & Internal [facility] [id number] [place] [address] Aubrey, [facility] Provider Due for routine follow up Social History Tobacco Use Types Packs/Day Years Used Date Smoking Tobacco: Former Cigarettes 1 11/05/1996 - 09/04/2001 Smokeless Tobacco: Never Comments:smoked 1 pack per w [place] Alcohol Use Standard Drinks/Week Comments Not Currently 0 (1 standard drink = 0.6 oz pur e alcohol) PHQ-2 Answer Date Recorded Patient Health Questionnaire-2 Score 0 03/22/2023 Sex and Gender Information Value Date Recorded Sex Assigned at Male 10/16/2024 9:32 AM ANESTHESIOLOGY MEDICAL DOCTOR Legal Sex Male 7:58 PM CDT Gender Identity Male 11/02/2021 3:03 PM ANESTHESIOLOGY MEDICAL DOCTOR Sexual Orientation Straight 11/02/2021 3: 03 PM ANESTHESIOLOGY MEDICAL DOCTOR documented as of this encounter Plan of Treatment Upcoming Encounters Date Type Department Care Team (Late st Contact Info) Description 10/18/2025 9:00 AM ANESTHESIOLOGY MEDICAL DOCTOR Office Visit [facility] Family & Internal Medicine [facility] [address] [place] [address] [place] [address] [place] [address] documented as of this encounter Visit Diagnoses Not on filedocumented in this encounter Additional Health Concerns Assessment Noted Time PHQ-9 Depression Total Score: 20 022 12:53 PM CDT documented as of this encounter Care Teams Wire Roller Relationship Specialty [place] [address] [place] [address] PCP - General FAMILY PRACTICE 12/29/18 documented as of this encounter
--- OUTSIDE RECORDS SUMMARY | 2025-05-20 01:02 | XMS_ITS | Encounter Summary ---
Author Organization [facility] Address [facility] [place] [address] Care Team Providers Care Target Worker Name Role Phone Vaibhav Griffin MD Primary Care Provider [phone] Encounter Details Date Type Department Care Team (Late st Contact Info) Description 07/01/2023 TRINA SOLAR LTDt Message Enc [facility] Medical Group Family & Internal Medicine [facility] [address] [place] [address] [place] [address] [place] [address] Baldomero Hudson Social History Tobacco Use Types Packs/Day Years Used Date Smoking Tobacco: Former Cigarettes 1 11/05/1996 - 09/04/2001 Smokeless Tobacco: Never Comments:smoked 1 pack per w [place] Alcohol Use Standard Drinks/Week Comments Not Currently 0 (1 standard drink = 0.6 oz pur e alcohol) PHQ-2 Answer Date Recorded Patient Health Questionnaire-2 Score 0 03/22/2023 Sex and Gender Information Value Date Recorded Sex Assigned at Male 10/16/2024 9:32 AM REFRIGERATION ENGINE OPERATOR Legal Sex Male 7:58 PM CDT Gender Identity Male 11/02/2021 3:03 PM REFRIGERATION ENGINE OPERATOR Sexual Orientation Straight 11/02/2021 3: 03 PM REFRIGERATION ENGINE OPERATOR documented as of this encounter Plan of Treatment Upcoming Encounters Date Type Department Care Team (Late st Contact Info) Description 10/18/2025 9:00 AM REFRIGERATION ENGINE OPERATOR Office Visit [facility] Medical Group Family & Internal Medicine [facility] [address] [place] [phone] [place] [address] [place], [place] [id number] documented as of this encounter Visit Diagnoses Not on filedocumented in this encounter Additional Health Concerns Assessment Noted Time PHQ-9 Depression Total Score: 20 022 12:53 PM CDT documented as of this encounter Care Teams Target Worker Relationship Specialty Start [place] [address] [place], [place] [id number] PCP - General FAMILY PRACTICE 12/29/18 documented as of this encounter
--- OUTSIDE RECORDS SUMMARY | 2025-05-20 01:02 | XMS_ITS | Encounter Summary ---
Author Organization [facility] Address [address] [place] [id number] Care Team Providers Care Mechanical Piping Designer Name Role Phone Vaibhav Griffin MD Primary Care Provider [phone] Encounter Details Date Type Department Care Team (Late st Contact Info) Description 01/17/2022 Now In Store Message Enc [facility] Family & Internal Medicine [address] [address] [facility] work Social History Tobacco Use Types Packs/Day Years Used Date Smoking Tobacco: Former Cigarettes 1 11/05/1996 - 09/04/2001 Smokeless Tobacco: Never Comments:smoked 1 pack per w [email or web address] Alcohol Use Standard Drinks/Week Comments Not Currently 0 (1 standard drink = 0.6 oz pur e alcohol) PHQ-2 Answer Date Recorded PHQ-2 Score - If the patient scores above 3, please move on to questions 3-9 5 12/07/2021 Sex and Gender Information Value Date Recorded Sex Assigned at Male 10/16/2024 9:32 AM STARCH TREATING ASSISTANT Legal Sex Male 7:58 PM CDT Gender Identity Male 11/02/2021 3:03 PM STARCH TREATING ASSISTANT Sexual Orientation Straight 11/02/2021 3: 03 PM STARCH TREATING ASSISTANT COVID-19 Exposure Response Date Recorded In the last 10 days, have yo u been in contact with someone who was confirmed or suspected to have Coronavirus/COVID-19? No / Unsure 01/19/2022 8:34 AM CDT documented as of this encounter Plan of Treatment Upcoming Encounters Date Type Department Care Team (Late st Contact Info) Description 10/18/2025 9:00 AM STARCH TREATING ASSISTANT Office Visit [facility] Family & Internal Medicine [facility] [address] [place] [address] [place] [address] [place], [place] [id number] documented as of this encounter Visit Diagnoses Not on filedocumented in this encounter Additional Health Concerns Assessment Noted Time PHQ-9 Depression Total Score: 20 022 12:53 PM CDT documented as of this encounter Care Teams Mechanical Piping Designer Relationship Specialty [place] [address] [place] [address] PCP - General FAMILY PRACTICE 12/29/18 documented as of this encounter
--- OUTSIDE RECORDS SUMMARY | 2025-05-20 01:02 | XMS_ITS | Encounter Summary ---
Author Organization [facility] Address [address] [place] [address] Care Team Providers Care Agricultural Labor Camp Manager Name Role Phone Vaibhav Griffin MD Primary Care Provider [phone] Encounter Details Date Type Department Care Team (Late st Contact Info) Description 01/18/2022 [place] Message Enc [facility] Medical Group Family & Internal Medicine [address] [address] [facility] Social History Tobacco Use Types Packs/Day Years Used Date Smoking Tobacco: Former Cigarettes 1 11/05/1996 - 09/04/2001 Smokeless Tobacco: Never Comments:smoked 1 pack per w comanche Alcohol Use Standard Drinks/Week Comments Not Currently 0 (1 standard drink = 0.6 oz pur e alcohol) PHQ-2 Answer Date Recorded PHQ-2 Score - If the patient scores above 3, please move on to questions 3-9 5 12/07/2021 Sex and Gender Information Value Date Recorded Sex Assigned at Male 10/16/2024 9:32 AM MANAGER COST Legal Sex Male 7:58 PM CDT Gender Identity Male 11/02/2021 3:03 PM MANAGER COST Sexual Orientation Straight 11/02/2021 3: 03 PM MANAGER COST COVID-19 Exposure Response Date Recorded In the last 10 days, have yo u been in contact with someone who was confirmed or suspected to have Coronavirus/COVID-19? No / Unsure 01/19/2022 8:34 AM CDT documented as of this encounter Plan of Treatment Upcoming Encounters Date Type Department Care Team (Late st Contact Info) Description 10/18/2025 9:00 AM MANAGER COST Office Visit [facility] Group Family & Internal Medicine [facility] [address] [place] [address] [place] [address] [place], [place] [phone] documented as of this encounter Visit Diagnoses Not on filedocumented in this encounter Additional Health Concerns Assessment Noted Time PHQ-9 Depression Total Score: 20 022 12:53 PM CDT documented as of this encounter Care Teams Agricultural Labor Camp Manager Relationship Specialty [place] [address] [place] [address] PCP - General FAMILY PRACTICE 12/29/18 documented as of this encounter
--- OUTSIDE RECORDS SUMMARY | 2025-05-20 01:02 | XMS_ITS | Clinical Summary ---
Author Organization [facility] Address [address] [place] [address] Care Team Providers Care Systems Checkout Mechanic Name Role Phone Vaibhav Griffin MD Primary Care Provider [phone] Allergies Active Allergy Reactions Criticality Noted Date Comments Penicillins Headache Low 08/04/2019 High doses Medications aspirin 81 MG chewable tablet Chew 1 tablet (81 mg total) by mouth daily. Active amLODIPine (NORVASC) 10 MG tabletIndications :Essential hypertension Take 1 tablet (10 mg total) by mouth daily. 90 tablet 5 Active losartan (COZAAR) 100 MG tabletIndications :Essential hypertension Take 1 tablet (100 mg total) by mouth daily. 90 tablet 1 5 Active omeprazole (PRILOSEC) 20 MG capsuleIndication s:Gastroesophagea l reflux disease without esophagitis Take 1 capsule (20 mg total) by mouth daily. 90 capsule 1 5 Active LORazepam (ATIVAN) 0.5 MG tabletIndications :Anxiety Take 1 tablet (0.5 mg total) by mouth 2 (two) times daily as needed. FOR ANXIETY 60 tablet 5 Active Active Problems Problem Noted Date Diagnosed Date Bladder cancer ([facility]) 10/20/2022 Overview (04/15/2025): had surgery to remove tumor Total knee replacement status, bilateral 022 Facet hypertrophy of lumbar region 03/27/2021 Degenerative disc disease, lumbar 03/27/2021 Midline low back pain withou t sciatica, unspecified chronicity 05/31/2020 Spinal stenosis, lumbar faith on without neurogenic claudication 03/08/2020 Essential hypertension 12/30/2018 Gastroesophageal reflux disease without esophagi tis 12/30/2018 Primary osteoarthritis of both knees 12/30/2018 Sleep apnea Overview (12/30/2018): pt states he wears a dental device due to not being able to tolerate cpap machine Encounters Date Type Department Care Team Description 04/30/2025 Scan [facility] Scanned, [facility] 04/22/2025 Scan [facility] Scanned, [facility] Procedure (SCAN); Lab (SCAN); Image (SCAN); Pathology (SCAN) 04/15/2025 11:40 AM CDT Office Visit [facility] Family & Internal Medicine [facility] [address] [place] [address] Vaibhav Griffin MD Follow Up; Hypertension 04/15/2025 10:00 AM CDT - 04/15/2025 11:59 PM CDT Hospital Encounter [facility] Cardiopulmonary Services [id number] [place] [address] Tiffany Garcia MD Discharge Disposition: Home or Self Care (Routine Discharge) 04/15/2025 Travel from Last 3 Months Immunizations Immunization Administration Dates Next Due COVID-19 Vaccine (Generic) 04/24/2022(Deferred: Patient Refused) Tdap (Generic) 04/10/2016 Family History Medical History Relation Comments Stroke Father Cancer Mother lung and brain Relation Status Comments Father Alive Mother Social History Tobacco Use Types Packs/Day Years Used Date Smoking Tobacco: Former Cigarettes 1 11/05/1996 - 09/04/2001 Smokeless Tobacco: Never Tobacco Cessation:Counseling Given: No Comments:smoked 1 pack per week Alcohol Use Standard Drinks/Week Comments Not Currently 0 (1 standard drink = 0.6 oz pur e alcohol) PHQ-2 Answer Date Recorded Patient Health Questionnaire-2 Score 0 04/15/2025 Sex and Gender Information Value Date Recorded Sex Assigned at Male 10/16/2024 9:32 AM INTERNAL MEDICINE SPECIALIST Legal Sex Male 7:58 PM CDT Gender Identity Male 11/02/2021 3:03 PM INTERNAL MEDICINE SPECIALIST Sexual Orientation Straight 11/02/2021 3: 03 PM INTERNAL MEDICINE SPECIALIST Last Filed Vital Signs Vital Sign Reading Time Taken Comments Blood Pressure 140/89 04/15/2025 11:31 AM CDT Pulse 71 04/15/2025 11:31 AM CDT Temperature 36.8 C (98.3 F) 04/15/2025 11:31 AM CDT Respiratory Rate 16 04/15/2025 11:31 AM CDT Oxygen Saturation 99% 04/15/2025 11:31 AM CDT Inhaled Oxygen Concentration - - Weight 72.6 kg (160 lb) 04/15/2025 11:31 AM CDT Height 172.7 cm (5' 8) 04/15/2025 11:31 AM CDT Body Mass Index 24.33 04/15/2025 11:31 AM CDT Plan of Treatment Upcoming Encounters Date Type Department Care Team (Late st Contact Info) Description 10/18/2025 9:00 AM INTERNAL MEDICINE SPECIALIST Office Visit [facility] Medical Group Family & Internal Medicine - [place] [id number] [place] [address] [place] [id number] [place] [address] Health Maintenance Due Date Last Done Comments Hepatitis C 1979 Pneumococcal Vaccine: 50+ Ye ars (1 of 1 - PCV) 2011 Zoster Vaccines (1 of 2) 2011 Annual Physical 12/31/2019 12/30/2018 COVID-19 Vaccine ( - 2023-2 5 season) 2025 DTaP, Tdap and Td Vaccines ( 2 - Td or Tdap) 04/10/2026 04/10/2016 Colorectal Cancer Screening Colonoscopy (10 Years) 06/04/2033 RSV Immunization or 60+ Years (1 - 1-dose 75+ series) 2036 PHQ-2 (Physician [place]) Completed 04/15/2025 Meningococcal B Vaccine Aged Out No l onger eligible based on patient's age to complete this topic Meningococcal Vaccine Aged Out No melony floyd eligible based on patient's age to complete this topic RSV Immunizations Under 20 Months Aged Out No longer eligible based on patient's age to complete this topic Procedures Procedure Name Priority Date/Time Associated Diagnosis Comments PATHOLOGY GENERIC (SCAN ORDER) 04/22/2025 OUTSIDE LAB (SCAN ORDER) 04/22/2025 IMAGE GENERIC 04/22/2025 PROCEDURE GENERIC (SCAN ORDER) 04/22/2025 PROCEDURE GENERIC (SCAN ORDER) 04/22/2025 ECG 12-LEAD Routine 04/15/2025 10:21 AM CDT Essential hypertension from Last 3 Months Results * PATHOLOGY GENERIC (SCAN ORDER) (04/22/2025) 04/22/2025 [facility] Scanned SCANNING Final Resu lt * OUTSIDE LAB (SCAN ORDER) (04/22/2025) 04/22/2025 [facility] Scanned SCANNING Final Resu lt * IMAGE GENERIC (04/22/2025) Anatomical Region Laterality Modality Other 04/22/2025 [facility] Scanned SCANNING Final Resu lt * PROCEDURE GENERIC (SCAN ORDER) (04/22/2025) 04/22/2025 [facility] Scanned SCANNING Final Resu lt * PROCEDURE GENERIC (SCAN ORDER) (04/22/2025) 04/22/2025 [facility] Scanned SCANNING Final Resu lt * ECG 12 lead (04/15/2025 10:21 AM CDT) 04/15/2025 10:2 1 AM CDT Narrative [facility] RAD - 04/15/2025 12:28 PM CDT [facility] Test Date: 2025-04-15 Pat Name: SARA SAMSSAN [facility] Department: 85 Room: Gender: Male Retail Clerk: : 1960 Requested By: TIFFANY GARCIA Order Number: [id number] Reading MD: Lucretia Blanco Measurements Intervals [place] Rate: 75 P: 54 ID: [id number] QRS: -17 QRSD: 86 T: 61 QT: 381 QTc: 425 Interpretive Statements SINUS RHYTHM NONSPECIFIC T-WAVE ABNORMALITY Compared to ECG 04/22/2022 10:09:05 No significant changes Procedure Note Lucretia Blanco MD - 04/15/2025 [facility] Test Date: 2025-04-15 [facility] Department: 85 Room: Gender: Male Retail Clerk: : 1960 Requested By: TIFFANY GARCIA Order Number: [id number] Reading MD: Lucretia Blanco Measurements Intervals [place] Rate: 75 P: 54 ID: [id number] QRS: -17 QRSD: 86 T: 61 QT: 381 QTc: 425 Interpretive Statements SINUS RHYTHM NONSPECIFIC T-WAVE ABNORMALITY Compared to ECG 04/22/2022 10:09:05 No significant changes us Tiffany Garcia MD ECG ORDERABLES Final Result [facility] RAD from Last 3 Months Insurance [employer] Care Teams Systems Checkout Mechanic Relationship Specialty [place] [address] [place] [address] PCP - General FAMILY PRACTICE 12/29/18
--- NOTE | 2025-05-20 06:01 | WPDHPUPDATE1 ---
History and Physical Update Update Date/Time: 05/20/25 06:01 History and Physical has been reviewed, including an updated exam of the patient. There are NO changes in the patient's condition. Risks, benefits, and alternatives have been discussed and questions answered. Patient agrees to proceed with procedure.
[2025-05-20] MEDS: LACTATED RINGERS 1,000 ML 30 ML IV CONT (10:00)
--- NOTE | 2025-05-20 10:37 | P.PNAN_ITS ---
Anes - Initial Pre Proc Eval Procedure: Operation Date: 05/20/25 11:00 Proposed Procedures p Re-Resection of Bladder Tumor Base - Duncan Bran MD Date/Time: 05/20/25 10:37 Surgeon: Duncan Bran MD Pre Op Diagnosis: bladder tumor Patient Data Age: 64 Gender: M Height: 1.73 m Weight: 77.2 kg Last Vital Signs Temp 36.8 C 05/20/25 09:10 Pulse 73 05/20/25 09:10 Resp 16 05/20/25 09:10 BP 131/88 05/20/25 09:10 Pulse Ox 98 05/20/25 09:10 O2 Del Method Room Air 05/20/25 09:10 Allergies Allergy/AdvReac Type Severity Reaction Status Date / Time Penicillins AdvReac Mild Headache Verified 05/20/25 09:57 Home Medications ?Medication ?Instructions ?Recorded ?Confirmed ?Type amlodipine 10 mg tablet 10 mg PO HS 05/29/22 5 History aspirin 81 mg capsule 81 mg PO DAILY 05/29/2205/10 History Held on 04/22/25. Instructions: Resume on 04/24/25. lorazepam 0.5 mg tablet 0.5 mg PO PRN PRN Anxiety 05/13/25 History losartan 100 mg tablet 100 mg PO HS 05/29/22 History omeprazole 20 mg capsule,delayed 20 mg PO DAILY 05/20/25 History release multivitamin 1 tablet PO DAILY 10/16/23 0 05/20/25 History vitamin B complex 1 cap PO DAILY 10/16/2305/10 History ferrous sulfate 325 mg (65 mg 650 mg PO DAILY 04/14/25 05/20/25 History iron) tablet (Feosol) hydrocodone 5 mg-acetaminophen 325 1 - 2 tablet PO Q6H PRN pain #20 04/22/25 05/13/25 Rx mg tablet tabs Patient hx anesthesia problems: none Family hx anesthesia problems: none Results Review: All pre-operative results and documents have been reviewed as part of the pre- operative evaluation. [facility] Past Medical History Medical History (Updated 10/24/23 @ 09:21 by Duncan Bran MD) Anxiety GERD (gastroesophageal reflux disease) KRISTAL (obstructive sleep apnea) Hypertension Social History Social History Smoking packs per day: 0.5 Smoking cigarettes per day: 10.0 Years smoked: 10 Smoking pack-years: 5.00 Smoking status: Former smoker Tobacco type: cigarettes Smoking end date: 04/14/00 Additional smoking assessment comments: STOPPED SMOKING 1999 Alcohol intake: current Drinks per week: 1 Alcohol use details: prior to knee surgery would drink on occasion Substance use: current Substance use type: marijuana Other substance usage details: THC gummies Living arrangements: with family Spiritual care concerns: No Anes - Eval Final PreProcedure Day of Procedure 05/20/25 10:37 Patient weight: overweight Heart: regular rate and rhythm Lungs: clear to auscultation Airway: Mallampati scale class II Neurological: alert and oriented Last oral intake: >/= 8 hours ASA classification: III Emergent: no Anesthetic plan: proceed Anesthesia type and monitoring: general LMA and standard monitoring Results Review: All pre-operative results and documents have been reviewed as part of the pre- operative evaluation. Informed Consent: The patient's anesthetic plan and its attendant risks and benefits were discussed with the patient/family/POA. Questions were solicited and answers provided to the satisfaction of the patient/family/POA.
[2025-05-20] MEDS: ceFAZolin 2 GM in SODIUM CHLORIDE 0.9% IV 50 ML 100 ML IVPB (10:44)
--- NOTE | 2025-05-20 11:18 | W.PM.PROC2 ---
Procedure Note - Detailed Date of Procedure 05/20/25 Pre-op Diagnosis History of T-1 bladder tumor Post-op Diagnosis Same Procedure Performed Re resection bladder tumor base (TURBT, 2cm-small) Surgeon Duncan Bran MD Anesthesia General Description of Procedure Patient brought the operative suite was prepped draped in routine sterile fashion while in dorsal lithotomy position after the uneventful induction of a general LMA anesthetic. Cystoscopy was undertaken with a 24 F resectoscope. There was areas of healing in his posterior bladder wall at the site of recent bladder resection. Ureteral orifices position with clear efflux. I resected the site in the anterior wall just inside the bladder neck where invasion into the lamina propria had been identified. There was no gross residual/recurrent tumor at that site. The base and periphery was cauterized. Drains No Pathology Yes Complications No immediate complications Condition Stable
--- NOTE | 2025-05-20 11:57 | S_PTH ---
PATIENT: Baldomero Hudson LOC: [facility] U#:[id number] AGE/SX: 64/M ROOM: RE05/20/[address]: Duncan Bran MD : 1960 BED: DIS: 05/20/2025 SPEC #: [id number] RECD: 05/20/25 12:06 STATUS: JANET REIsabella #: [id number] ELMER: 05/20/25 11:[address]: Duncan Bran DEPT: [facility] Surgical RECD BY: Luann Avila ENTERED: 05/20/25 12:06 SP TYPE: Surgical OTHR DR: Vaibhav Griffin, Tissues: A - Bladder Tumor Procedures: Hematoxylin and Eosin Stain Gross and Microscopic Level 4
[2025-05-20] MEDS: ONDANSETRON INJ 4 MG/2 ML VIAL IV PUSH (12:29)
== END 2025-05-20 13:40 | disposition home or self-care (01) ==
PROVIDERS: PCP Family Medicine; Visit Provider Urology
PROC: 0TBB8ZZ Excision of Bladder, Via Natural or Artificial Opening Endoscopic (ICD-10-PCS; CPT 52234; principal; 2025-05-20 11:00)
DX: N30.20 Other chronic cystitis without hematuria (principal); I10 Essential (primary) hypertension; K21.9 Gastro-esophageal reflux disease without esophagitis; F41.9 Anxiety disorder, unspecified; G47.33 Obstructive sleep apnea (adult) (pediatric); F12.90 Cannabis use, unspecified, uncomplicated; Z79.82 Long term (current) use of aspirin; Z79.891 Long term (current) use of opiate analgesic; Z87.891 Personal history of nicotine dependence
CPT/HCPCS: 52234; 88305; J0690; J1100; J2250; J2405; J2704; J7120